=== PATIENT | female | born 1995 | race African-American/Black ===

== ENCOUNTER 2018-03-19 19:34 | Emergency (ER) | payer OTHER ==
[2018-03-19 19:39] VITALS: BP 117/74; PULSE 92; TEMP 97.8; BMI 22.6
--- NOTE | 2018-03-19 19:42 | PDOC ---
Rapid Medical Evaluation Chief Complaint: Edema Time Seen by Provider: 03/19/18 19:36 Medical Evaluation: Allergies Allergy/AdvReac Type Severity Reaction Status Date / Time coconut oil AdvReac Unknown Hives Verified 09/20/17 20:08 03/19/18 19:36 right foot and ankle swelling 4 days now worsening now with pain. patient reports recent tattoo to the right lower extremity denies injury. reports recent long distance travel 1 month ago. denies SOB, chest pain, pleuritic chest pain. PE: right ankle and foot edema. dry scabs over tattoo. + pedal pulse. A: pedal edema P: US r/o DVT urine . patient to the ER for further management of care. . 03/19/18 19:39
--- NOTE | 2018-03-19 20:06 | PDOC ---
Attending Attestation - Resident Resident Name: Harman Vega - ED Attending Attestation I have performed the following: I have examined & evaluated the patient, The case was reviewed & discussed with the resident, I agree w/resident's findings & plan, Exceptions are as noted - Physicial Exam PE: 03/19/18 20:19 *Physical Exam General Appearance: Yes: Appropriately Dressed. No: Apparent Distress, Intoxicated HEENT: positive: EOMI, FRANCES, Normal ENT Inspection, Normal Voice, TMs Normal, Pharynx Normal. negative: Pale Conjunctivae, Photophobia, Scleral Icterus (R), Scleral Icterus (L) Neck: positive: Trachea midline, Normal Thyroid, Supple. negative: Tender, Rigid, Carotid bruit, Stridor, Lymphadenopathy (R), Lymphadenopathy (L), Thyromegaly Respiratory/Chest: positive: Lungs Clear, Normal Breath Sounds. negative: Chest Tender, Respiratory Distress, Accessory Muscle Use, Labored Respiration, RES, Crackles, Rales, Rhonchi, Stridor, Wheezing, Dullness Cardiovascular: positive: Regular Rhythm, Regular Rate, S1, S2. negative: Edema , JVD, Murmur, Bradycardia, Tachycardia Vascular Pulses: Dorsalis-Pedis (R): 2+, Doralis-Pedis (L): 2+ Gastrointestinal/Abdominal: positive: Normal Bowel Sounds, Flat, Soft. negative : Tender, Organomegaly, Pulsatile Mass, Increased Bowel Sounds, Decreased BS, Distended, Guarding, Rebound, Hernia, Hepatomegaly, Spleenomegaly Lymphatic: negative: Adenopathy, Tenderness Musculoskeletal: positive: Normal Inspection. negative: CVA Tenderness, Decreased Range of Motion Extremity: positive: right leg edema and erthyema from below knee to ankle, crusty healing tattoo, non-tender Normal Range of Motion, Pelvis Stable. Integumentary: positive: Normal Color, Dry, Warm. 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 negative: EOM Palsy, Facial Droop, Sensory Deficit <Gian Schmitz - Last Filed: 03/19/18 20:19> - HPI HPI: 03/19/18 20:32 The patient is a 23 year old female with no known past medical history presents to the emergency department with right lower extremity swelling since 4 days ago. The patient reports she got a tattoo on her right lower leg Saturday and on Sat she went to get a pedicure, later Saturday she noticed swelling to her R. leg. The patient states she can ambulate but with pain, mild relief using her grandmas crutches, no meds taken. Denies any numbness, tingling, weakness of loss of sensation. Denies fever, chills, cough. Denies nausea, vomiting, diarrhea or constipation. Denies dysuria, hematuria, frequency or urgency to urinate. Denies any history of cancer. Allergies: Coconut oil Social history: Smokes 1 pack of cigarettes a week. Surgical history: No surgical history. Reports the use of alcohol. Denies the use of recreational drugs. PCP: Dr. Su Gonzalez - Medical Decision Making 03/19/18 20:32 Documentation prepared by Lillian Warner, acting as front office medical assistant for Gian Schmitz DO <Lillian Warner - Last Filed: 03/19/18 21:54>
--- NOTE | 2018-03-19 20:10 | PDOC ---
History of Present Illness - General Chief Complaint: Edema Stated Complaint: SWOLLEN FOOT Time Seen by Provider: 03/19/18 19:36 History Source: Patient Exam Limitations: No Limitations - History of Present Illness Initial Comments: 03/19/18 20:13 The patient is a 23F with no PMH who presents to the ER with complaints of R lower extremity swelling. The patient states that she had a tattoo done on Saturday and noticed that her foot and leg were swollen Saturday. The swelling has been constant and associated with pain with ambulation. She states that the pain and swelling are better when she uses crutches to walk. She smokes 1 pack of cigarettes/week, does not use oral contraceptives, has no hx of recent surgery, no hx of cancer, and has no hx of blood clots. Past History - Past Medical History Allergies/Adverse Reactions: Allergies Allergy/AdvReac Type Severity Reaction Status Date / Time coconut oil AdvReac Unknown Hives Verified 03/19/18 19:36 Home Medications: Ambulatory Orders Clindamycin [Cleocin -] 300 mg PO TID #21 capsule 03/19/18 Anemia: Yes COPD: No - Immunization History Immunization Up to Date: Yes - Suicide/Smoking/Psychosocial Hx Smoking History: Current every day smoker Number of Cigarettes Smoked Daily: 4 Information on smoking cessation initiated: No 'Breaking Loose' booklet given: 03/25/14 Hx Alcohol Use: Yes Substance Use Type: None Review of Systems - Review of Systems Able to Perform ROS?: Yes Comments:: 03/19/18 21:04 GENERAL/CONSTITUTIONAL: No fever or chills. No weakness. HEAD, EYES, EARS, NOSE AND THROAT: No change in vision. No ear pain or discharge. No sore throat. CARDIOVASCULAR: No chest pain, palpitations, or lightheadedness. RESPIRATORY: No cough, wheezing, shortness of breath, or hemoptysis. GASTROINTESTINAL: No nausea, vomiting, diarrhea, constipation, or abdominal pain. GENITOURINARY: No dysuria, frequency, hematuria, or change in urination. MUSCULOSKELETAL: No joint or muscle swelling or pain. No neck or back pain. SKIN: Positive for R LE swelling. No rash or lesions. NEUROLOGIC: No headache, numbness, tingling, weakness, loss of consciousness, or change in strength/sensation. ENDOCRINE: No increased thirst. No abnormal weight change. HEMATOLOGIC/LYMPHATIC: No anemia, easy bleeding, or history of blood clots. ALLERGIC/IMMUNOLOGIC: No hives or skin allergy. Is the patient limited Japanese proficient: No *Physical Exam - Vital Signs Last Vital Signs Temp Pulse Resp BP Pulse Ox 97.8 F 92 H 16 117/74 99 03/19/18 19:37 03/19/18 19:37 03/19/18 19:37 03/19/18 19:37 03/19/18 19:37 - Physical Exam Comments: 03/19/18 21:08 GENERAL: Well developed, well nourished. Awake and alert. No acute distress. HEENT: Normocephalic, atraumatic. Hearing grossly normal. Moist mucous membranes. PERRLA, EOMI. No conjunctival pallor. Sclera are non-icteric. NECK: Supple. Full ROM. CARDIOVASCULAR: Regular rate and rhythm. No murmurs, rubs, or gallops. PULMONARY: No evidence of respiratory distress. Lungs clear to auscultation bilaterally. No wheezing, rales or rhonchi. ABDOMINAL: Soft. Non-tender. Non-distended. No rebound or guarding. GENITOURINARY: No CVA tenderness bilaterally. MUSCULOSKELETAL: Normal range of motion at all joints. No bony deformities or tenderness. EXTREMITIES: 2+ pitting edema in R foot, up to 1+ just inferior to her knee. No crepitus present. 2+ DP pulse. Sensory intact. Movement intact. No calf tenderness. Healing tattoo present, nonerythematous, not warm to touch. No cyanosis. No clubbing. No calf tenderness. SKIN: Warm and dry. Normal capillary refill. No rashes. No jaundice. NEUROLOGICAL: Alert, awake, appropriate. Cranial nerves 2-12 intact. Normal speech. Gait is normal without ataxia. PSYCHIATRIC: Cooperative. Good eye contact. Appropriate mood and affect. ED Treatment Course - LABORATORY CBC & Chemistry Diagram: 03/19/18 21:00 03/19/18 21:00 Medical Decision Making - Medical Decision Making 03/19/18 21:10 The patient is a 23F with no PMH who presents with a swollen and pitting edema s /p tattoo placement. Will U/S and obtain CBC to r/o DVT and infectious process. Will give abx d/t likely infectious process after her tattoo. Pending U/S. 03/19/18 21:53 DVT U/S negative for clot, as well as infectious signs such as air in the tissue. On repeat discussion, the patient states she had a pedicure and dipped her legs into the pedicure tub after getting her tattoo. This raises my suspicion very highly for an infection. Will send pt home with clinda. *DC/Admit/Observation/Transfer Diagnosis at time of Disposition: Cellulitis Qualifiers: Site of cellulitis: extremity Site of cellulitis of extremity: lower extremity Laterality: right Qualified Code(s): L03.115 - Cellulitis of right lower limb - Discharge Dispostion Disposition: HOME Condition at time of disposition: Stable Decision to Admit order: No - Prescriptions Prescriptions: Clindamycin [Cleocin -] 300 mg PO TID #21 capsule - Referrals - Patient Instructions Printed Discharge Instructions: DI for Cellulitis -- Adult Additional Instructions: Please follow up with your primary care physician in 2-3 days. Please return to the ER if you have any signs or symptoms of chest pain, shortness of breath, uncontrollable fever, chills, nausea, vomiting, numbness, tingling, or weakness in any part of your body, changes in vision, or slurred speech. Please take your medications as prescribed. Take the antibiotics with a probiotic yogurt such as Activia. Please return to the ER if symptoms persist, worsen, or new symptoms arise. - Post Discharge Activity
[2018-03-19] MEDS ORDERED: CEFAZOLIN 1 GM in DEXTROSE 5%-WATER - 50 ML IVPB ONE (20:11)
[2018-03-19 21:08] LABS: BASO % 0.7 % (0-2.0); EOS % 1.8 % (0-4.5); HEMATOCRIT 39.8 % (32.4-45.2); HEMOGLOBIN 13.1 GM/dL (10.7-15.3); MCH 26.2 pg (25.7-33.7); MCHC 32.8 g/dl (32.0-36.0); MEAN PLT VOLUME 7.7 fl (7.5-11.1); MONO % 6.5 % (3.8-10.2); PLATELET COUNT 343 K/MM3 (134-434); RBC 4.98 M/mm3 (3.60-5.2); RDW 14.3 % (11.6-15.6)
[2018-03-19 21:28] LABS: ALK PHOS 67 U/L (45-117); ANION GAP 7 (8-16); BILIRUBIN,TOTAL 0.4 mg/dL (0.2-1.0); BLOOD UREA NITROGEN 6 mg/dL (7-18); CALCIUM 9.1 mg/dL (8.5-10.1); CHLORIDE 104 mmol/L (98-107); CO2 28 mmol/L (21-32); CREATININE 0.7 mg/dL (0.55-1.02); GLUCOSE,RANDOM 99 mg/dL (74-106); POTASSIUM 3.9 mmol/L (3.5-5.1); SGOT/AST 11 U/L (15-37); SODIUM 139 mmol/L (136-145); TOT PROT 7.7 g/dl (6.4-8.2)
[2018-03-19 21:34] LABS: SGPT/ALT 14 U/L (12-78)
== END 2018-03-19 23:15 | disposition home or self-care (01) ==
LOC: JER 19:34
DX: L03.115 Cellulitis of right lower limb (principal); L81.8 Other specified disorders of pigmentation; F17.210 Nicotine dependence, cigarettes, uncomplicated
CPT/HCPCS: 36415; 80053; 84703; 85025; 93971-TC; 99281-25

== ENCOUNTER 2018-09-26 13:21 | Emergency (ER) | payer OTHER ==
[2018-09-26 13:50] VITALS: BP 101/70; TEMP 98.9; BMI 24.4
[2018-09-26] MEDS ORDERED: IBUPROFEN 400 MG TABLET (FP) PO ONE ×2 (14:34→14:39)
--- NOTE | 2018-09-26 14:35 | PDOC ---
History of Present Illness - General Chief Complaint: Wound Stated Complaint: PAIN Time Seen by Provider: 09/26/18 14:30 History Source: Patient - History of Present Illness Timing/Duration: reports: week Past History - Past Medical History Allergies/Adverse Reactions: Allergies Allergy/AdvReac Type Severity Reaction Status Date / Time coconut oil AdvReac Unknown Hives Verified 09/26/18 13:46 Home Medications: Ambulatory Orders Clindamycin [Cleocin -] 300 mg PO Q6HPO #28 capsule 09/26/18 Anemia: Yes COPD: No - Immunization History Immunization Up to Date: Yes - Suicide/Smoking/Psychosocial Hx Smoking History: Current every day smoker Number of Cigarettes Smoked Daily: 4 Information on smoking cessation initiated: No 'Breaking Loose' booklet given: 03/25/14 Hx Alcohol Use: Yes Substance Use Type: None Review of Systems - Review of Systems Constitutional: No: Fever *Physical Exam - Vital Signs Last Vital Signs Temp Pulse Resp BP Pulse Ox 98.9 F 112 H 18 101/70 99 09/26/18 13:49 09/26/18 13:49 09/26/18 13:49 09/26/18 13:49 09/26/18 13:49 - Physical Exam General Appearance: Yes: Appropriately Dressed. No: Apparent Distress HEENT: positive: Normal Voice Neck: positive: Supple Respiratory/Chest: negative: Respiratory Distress Integumentary: positive: Dry, Warm Neurologic: positive: Fully Oriented, Alert, Normal Mood/Affect Procedures - Incision and Drainage I&D Site: Bilateral: Other (pilonidal) Betadine cleansed: Yes Anesthesia: 1% Lidocaine Blade Size: 11 Attempts: 1 (copious ampount of foul smelling purulent discharge) Medical Decision Making - Medical Decision Making 09/26/18 14:34 23-year-old female, history of pilonidal cyst, here with worsening pain and swelling over tailbone 1 week. No fever or chills see exam Pilonidal abscess Tachy to 112 at triage that improved to 99 in ED -tetanus UTD -pain control -I&D 09/26/18 15:25 S/p I&D of pilonidal abscess with copious amount of foul-smelling purulent drainage. Patient unable to tolerate a large enough incision to place packing despite ~15cc of lidocaine and oral pain meds in ED. Will dc with warm compresses and antibiotics and have patient return in 2 days for wound check 09/26/18 15:28 *DC/Admit/Observation/Transfer Diagnosis at time of Disposition: Pilonidal abscess - Discharge Dispostion Disposition: HOME Condition at time of disposition: Improved - Prescriptions Prescriptions: Clindamycin [Cleocin -] 300 mg PO Q6HPO #28 capsule - Referrals - Patient Instructions Printed Discharge Instructions: Pilonidal Cyst Additional Instructions: A pilonidal cyst is an abnormal pocket in the skin that usually contains hair and skin debris. A pilonidal cyst is almost always located near the tailbone at the top of the cleft of the buttocks. Pilonidal cysts usually occur when hair punctures the skin and then becomes embedded. If a pilonidal cyst becomes infected, the resulting abscess is often extremely painful. The cyst can be drained through a small incision or removed surgically. Pilonidal cysts most commonly occur in young men, and the problem has a tendency to recur. People who sit for prolonged periods of time, such as truck drivers, are at higher risk of developing a pilonidal cyst. Also obesity, inactive lifestyle, excess body hair and stiff or coarse hair Take antibiotics as directed and apply warm compresses to site for 20 minutes each time 3-4 times a days Take motrin for pain as needed Return to ED in 2 days for wound check Please follow up with surgery for further evaluation - Post Discharge Activity
[2018-09-26] MEDS ORDERED: DIPHTH,PERTUSS(ACELL),TET 0.5 ML DISP.SYRIN IM ONE (15:29)
--- NOTE | 2018-09-26 15:30 | PDOC ---
*Physical Exam - Vital Signs Last Vital Signs Temp Pulse Resp BP Pulse Ox 98.9 F 112 H 18 101/70 99 09/26/18 13:49 09/26/18 13:49 09/26/18 13:49 09/26/18 13:49 09/26/18 13:49 ED Treatment Course - Medications Given in the ED: ED Medications Discontinued Medications Generic Name Dose Route Start Last Admin Trade Name Francis PRN Reason Stop Dose Admin Ibuprofen 800 mg 09/26/18 14:34 09/26/18 14:42 Motrin - PO 09/26/18 14:35 800 mg ONCE ONE Administration *DC/Admit/Observation/Transfer Diagnosis at time of Disposition: Pilonidal abscess - Discharge Dispostion Disposition: HOME Condition at time of disposition: Improved - Prescriptions Prescriptions: Clindamycin [Cleocin -] 300 mg PO Q6HPO #28 capsule - Referrals Referrals: Kit Mendoza MD [Staff Physician] - - Patient Instructions Printed Discharge Instructions: Pilonidal Cyst Additional Instructions: A pilonidal cyst is an abnormal pocket in the skin that usually contains hair and skin debris. A pilonidal cyst is almost always located near the tailbone at the top of the cleft of the buttocks. Pilonidal cysts usually occur when hair punctures the skin and then becomes embedded. If a pilonidal cyst becomes infected, the resulting abscess is often extremely painful. The cyst can be drained through a small incision or removed surgically. Pilonidal cysts most commonly occur in young men, and the problem has a tendency to recur. People who sit for prolonged periods of time, such as truck drivers, are at higher risk of developing a pilonidal cyst. Also obesity, inactive lifestyle, excess body hair and stiff or coarse hair Take antibiotics as directed and apply warm compresses to site for 20 minutes each time 3-4 times a days Take motrin for pain as needed Return to ED in 2 days for wound check Please follow up with surgery for further evaluation - Post Discharge Activity
[2018-09-26 15:38] VITALS: PULSE 99
== END 2018-09-26 15:38 | disposition home or self-care (01) ==
LOC: JERFT 13:21
PROC: 0H98XZZ Drainage of Buttock Skin, External Approach (ICD-10-PCS; principal; 2018-09-26)
DX: L05.01 Pilonidal cyst with abscess (principal)
CPT/HCPCS: 10080; 90715; 99281-25

== ENCOUNTER 2018-09-28 15:41 | Emergency (ER) | payer OTHER ==
[2018-09-28 15:56] VITALS: BP 103/68; PULSE 84; TEMP 98.9; BMI 24.4
--- NOTE | 2018-09-28 16:04 | PDOC ---
History of Present Illness - General Chief Complaint: Revisit,Wound Recheck Stated Complaint: REVISIT Time Seen by Provider: 09/28/18 15:58 History Source: Patient Exam Limitations: No Limitations - History of Present Illness Initial Comments: 09/28/18 16:06 Patient here for wound check of pilonidal cysts. Was incised and drained 2 days ago. States was unable to tolerate packing but encouraged and complied with returning for wound check. States feels much improved, no swelling however has continued small to medium amount of drainage. Is taking clindamycin as directed. Occurred: reports: yesterday Severity: reports: mild, moderate Modifying Factors: improves with: None Loss of Consciousness: no loss of consciousness Associated Symptoms (Fall): denies symptoms Past History - Travel Traveled outside of the country in the last 30 days: No Close contact w/someone who was outside of country & ill: No - Past Medical History Allergies/Adverse Reactions: Allergies Allergy/AdvReac Type Severity Reaction Status Date / Time coconut oil AdvReac Unknown Hives Verified 09/28/18 15:56 Home Medications: Ambulatory Orders Clindamycin [Cleocin -] 300 mg PO Q6HPO #28 capsule 09/26/18 Anemia: Yes COPD: No - Immunization History Immunization Up to Date: Yes - Suicide/Smoking/Psychosocial Hx Smoking History: Never smoked Number of Cigarettes Smoked Daily: 4 'Breaking Loose' booklet given: 03/25/14 Hx Alcohol Use: Yes Substance Use Type: None Review of Systems - Review of Systems Able to Perform ROS?: Yes Is the patient limited Malawian proficient: Yes Constitutional: Yes: Symptoms Reported, See HPI, Malaise HEENTM: No: Symptoms Reported Respiratory: No: Symptoms reported Integumentary: Yes: Symptoms Reported, See HPI All Other Systems: Reviewed and Negative *Physical Exam - Vital Signs Last Vital Signs Temp Pulse Resp BP Pulse Ox 98.9 F 84 16 103/68 99 09/28/18 15:55 09/28/18 15:55 09/28/18 15:55 09/28/18 15:55 09/28/18 15:55 - Physical Exam General Appearance: Yes: Nourished, Appropriately Dressed HEENT: positive: FRANCES, Normal ENT Inspection, TMs Normal Neck: negative: Tender Extremity: positive: Normal Capillary Refill Integumentary: positive: Normal Color, Swelling, Other (pilonidal cys continues draing purulent drainage however unable to express a significant amount, Has no erythema and only mild tenderness circumferent) 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 Avoid strenuous activity or exercise until wound is healed Use hot soaks to area to bring more blood to the surface and encourage drainage May change dressings as needed to keep clean - Allow water from shower to wash area thoroughly for 2-3 minutes, and pat dry upon exit of shower and replace dressing. Change his dressing daily until the wound is completely healed. May use Tylenol or Motrin for mild pain relief Use stronger medications as directed and prescribed Continue all medications as prescribed Followup with private physician in 2-3 days for wound check Return to emergency Department for worsening swelling, pain, redness, fevers as needed - Post Discharge Activity Forms/Work/School Notes: Back to Work
== END 2018-09-28 16:19 | disposition home or self-care (01) ==
LOC: JERFT 15:41
DX: Z48.817 Encounter for surgical aftercare following surgery on the skin and subcutaneous tissue (principal); Z48.01 Encounter for change or removal of surgical wound dressing; L05.01 Pilonidal cyst with abscess
CPT/HCPCS: 99281-25

== ENCOUNTER 2018-10-18 11:58 | Emergency (ER) | payer OTHER ==
[2018-10-18 12:13] VITALS: BP 106/65; PULSE 86; TEMP 98; BMI 24.0
--- NOTE | 2018-10-18 12:47 | PDOC ---
History of Present Illness - General Chief Complaint: Pain Stated Complaint: KNEE SWELLING AND PAIN Time Seen by Provider: 10/18/18 12:15 Past History - Past Medical History Allergies/Adverse Reactions: Allergies Allergy/AdvReac Type Severity Reaction Status Date / Time coconut oil AdvReac Unknown Hives Verified 10/18/18 12:08 Home Medications: Ambulatory Orders Ibuprofen 600 mg PO Q6H #30 tablet 10/18/18 Anemia: Yes COPD: No - Immunization History Immunization Up to Date: Yes - Suicide/Smoking/Psychosocial Hx Smoking History: Current every day smoker Have you smoked in the past 12 months: Yes Number of Cigarettes Smoked Daily: 4 Information on smoking cessation initiated: Yes 'Breaking Loose' booklet given: 03/25/14 Hx Alcohol Use: No Drug/Substance Use Hx: No Substance Use Type: None Review of Systems - Review of Systems Able to Perform ROS?: Yes Comments:: 10/18/18 13:57 CONSTITUTIONAL: Absent: fever, chills, diaphoresis, generalized weakness, malaise, loss of appetite HEENT: Absent: rhinorrhea, nasal congestion, throat pain, throat swelling, difficulty swallowing, mouth swelling, ear pain, eye pain, visual Changes CARDIOVASCULAR: Absent: chest pain, loss of consciousness, palpitations, irregular heart rate, peripheral edema RESPIRATORY: Absent: cough, shortness of breath, dyspnea with exertion, orthopnea, wheezing, stridor, hemoptysis GASTROINTESTINAL: Absent: abdominal pain, abdominal distension, nausea, vomiting, diarrhea, constipation, melena, hematochezia GENITOURINARY: Absent: dysuria, frequency, urgency, hesitancy, hematuria, flank pain, genital pain MUSCULOSKELETAL: Absent: myalgia, arthralgia, joint swelling SKIN: Absent: rash, itching, pallor HEMATOLOGIC/IMMUNOLOGIC: Absent: easy bleeding, easy bruising, lymphadenopathy, frequent infections ENDOCRINE: Absent: unexplained weight gain, unexplained weight loss, heat intolerance, cold intolerance NEUROLOGIC: Absent: headache, focal weakness or paresthesias, dizziness, unsteady gait, seizure, mental status changes, bladder or bowel incontinence PSYCHIATRIC: Absent: anxiety, depression, suicidal or homicidal ideation, hallucinations. Is the patient limited Persian proficient: No *Physical Exam - Vital Signs Last Vital Signs Temp Pulse Resp BP Pulse Ox 98 F 86 16 106/65 100 10/18/18 12:05 10/18/18 12:05 10/18/18 12:05 10/18/18 12:05 10/18/18 12:05 - Physical Exam Comments: 10/18/18 19:58 GENERAL: The patient is awake, alert, and fully oriented, in no acute distress. HEAD: Normal with no signs of trauma. EYES: Pupils equal, round and reactive to light, extraocular movements intact, sclera anicteric, conjunctiva clear. EXTREMITIES: Normal range of motion, no edema. NEUROLOGICAL: Normal speech, normal gait. PSYCH: Normal mood, normal affect. SKIN: Warm, Dry, normal turgor, no rashes or lesions noted. Moderate Sedation - Procedure Monitoring Vital Signs: Procedure Monitoring Vital Signs Temperature 98 F 10/18/18 12:05 Pulse Rate 86 10/18/18 12:05 Respiratory Rate 16 10/18/18 12:05 Blood Pressure 106/65 10/18/18 12:05 O2 Sat by Pulse Oximetry (%) 100 10/18/18 12:05 *DC/Admit/Observation/Transfer Diagnosis at time of Disposition: Knee pain Qualifiers: Chronicity: acute Laterality: right Qualified Code(s): M25.561 - Pain in right knee - Discharge Dispostion Disposition: HOME Condition at time of disposition: Stable Decision to Admit order: No - Prescriptions Prescriptions: Ibuprofen 600 mg PO Q6H #30 tablet - Referrals Referrals: Matt Posadas MD [Staff Physician] - - Patient Instructions Printed Discharge Instructions: DI for Knee Pain Additional Instructions: You have knee pain I suspect your IT band is tight (the ligament on the outer leg) Stretch your hamstrings and quadracepts Take Motrin 600mg every 6 hours to help with pain Wear the julio wrap for comfort Follow up with orthopedics if your symptoms do not get better in one week Return to the ED for any new or worsening symptoms. - Post Discharge Activity
== END 2018-10-18 12:56 | disposition home or self-care (01) ==
LOC: JERFT 11:58
DX: M25.561 Pain in right knee (principal); F17.210 Nicotine dependence, cigarettes, uncomplicated
CPT/HCPCS: 99281-25